=== PATIENT | female | born 2000 | race African-American/Black ===

== ENCOUNTER 2024-10-15 13:40 | Emergency (ER) | payer MEDICARE, MEDICAID ==
[~2024-10-15] VITALS: Ht 157.5 cm; Wt 71.2 kg
[~2024-10-15 13:40] MED LIST: AMOX1TAB16 MT; IMOD MT; ONDA4TAB50 MT
[2024-10-15 13:46] VITALS: BP 122/70; O2SAT 100
[2024-10-15 13:57] VITALS: PULSE 106; RESP 16; O2SAT 98
[2024-10-15 15:05] LABS: BASOPHILS % 0.5 % (0.0-2.0); EOSINOPHILS % 1.1 % (0.0-5.0); HEMATOCRIT. 25.4 % (36.0-48.0); HEMOGLOBIN. 7.2 g/dL (12.0-16.0); LYMPHOCYTES % 15.4 % (20.0-50.0); MEAN CORPUSCULAR HEMOGLOBIN 16.7 pg (28.0-32.0); MEAN CORPUSCULAR HGB CONC 28.2 g/dL (31.0-37.0); MEAN PLATELET VOLUME 8.2 fl (7.4-10.4); MONOCYTES % 8.6 % (2.0-8.0); NEUTROPHILS % 74.4 % (40.0-76.0); PLATELET 389 x1000/uL (130-400); RED BLOOD CELL COUNT 4.31 mill/uL (4.2-5.4); WHITE BLOOD COUNT 4.7 x1000/uL (4.5-11.0)
[2024-10-15 15:24] LABS: CHLORIDE 105 mEq/L (98-107); POTASSIUM 3.5 mEq/L (3.5-5.1); SODIUM 140 mEq/L (136-145)
[2024-10-15 15:25] LABS: CALCIUM 9.7 mg/dL (8.7-10.4); CARBON DIOXIDE 26 mEq/L (21-32)
[2024-10-15 15:29] LABS: DIFFERENTIAL COMMENT 1
[2024-10-15 15:30] LABS: ADD RBC MORPHOLOGY YES; CREATININE 0.6 mg/dL (0.6-1.0); GLUCOSE 89 mg/dL (70-105); UREA NITROGEN BLOOD 7 mg/dL (9-23)
[2024-10-15 15:32] LABS: ALANINE AMINOTRANSFERASE 18 IU/L (10-49); ALBUMIN 4.2 g/dL (3.2-4.8); ASPARTATE AMINOTRANSFERASE 28 IU/L (<34); BILIRUBIN TOTAL 0.4 mg/dL (0.1-1.0); PROTEIN TOTAL 8.4 g/dL (6.0-8.3)
[2024-10-15 16:12] LABS: ANISOCYTOSIS 3+; HYPOCHROMASIA 3+; MICROCYTOSIS 3+; PLATELET ESTIMATE NORMAL
[2024-10-15] MEDS ORDERED: FERR324T4 MT (18:08)
[2024-10-15] MEDS ORDERED: MULT400T8 MT (18:08)
[2024-10-15] MEDS ORDERED: CIPR1DRO2 LEFT EAR (18:08)
[2024-10-15] MEDS ORDERED: CEPH500C2 MT (18:08)
== END 2024-10-15 19:23 | disposition left against medical advice (07) ==
LOC: ER 13:40
DX: H71.92 Unspecified cholesteatoma, left ear (principal); H60.92 Unspecified otitis externa, left ear; D64.9 Anemia, unspecified; J45.909 Unspecified asthma, uncomplicated; N89.8 Other specified noninflammatory disorders of vagina; Z79.899 Other long term (current) drug therapy
CPT/HCPCS: 36415; 80053; 84702; 85025; 99283